=== PATIENT | male | born 1980 | race Caucasian/White ===

== ENCOUNTER 2016-10-11 23:30 | Emergency (ER) | payer SELFPAY ==
[2016-10-11] MEDS ORDERED: ONDANSETRON HCL 4 MG/2 ML VIAL ONE (23:49)
[2016-10-11] MEDS ORDERED: KETOROLAC TROMETHAMINE 30 MG/ML VIAL ONE (23:49)
[2016-10-11] MEDS ORDERED: NORMAL SALINE 1,000 ML IV ONE (23:50)
[2016-10-12 00:21] LABS: URINE MUCUS NONE SEEN (Up to 25%)
[2016-10-12 00:34] LABS: URINE APPEARANCE CLOUDY; URINE COLOR PINK
[2016-10-12 00:35] LABS: URINE GLUCOSE NORMAL (NEGATIVE); URINE KETONE NEGATIVE (NEGATIVE); URINE NITRITE NEGATIVE (NEGATIVE); URINE PROTEIN 30mg/dL (1+) (NEG - TRACE); URINE SPECIFIC GRAVITY < or = 1.005 (0.001-1.035); URINE UROBILINOGEN 0.2mg/dL (Normal) (NEG-1mg/dL)
[2016-10-12 00:36] LABS: URINE BILIRUBIN NEGATIVE (NEGATIVE); URINE BLOOD 250 Ery/uL (3+) (NEGATIVE); URINE RBC 0-5/hpf (0-5/hpf); URINE SQUAMOUS EPITHELIAL CELL 0-5/hpf (<= 15/hpf); URINE WBC 0-4/hpf (0-4/hpf)
[2016-10-12 00:38] LABS: URINE BACTERIA <10 ORGANISMS/hpf (<10/hpf)
[2016-10-12 00:41] LABS: URINE AMORPHOUS SEDIMENT UP TO 25%/lpf (Up to 25%)
[2016-10-12 00:42] LABS: URINE LEUKOCYTE ESTERASE 25 WBC/uL (1+) (NEGATIVE)
--- NOTE | 2016-10-12 01:44 | ER PHYSICIAN DOCUMENTATION ---
Physician Documentation [facility] Name:Jean-Pierre Mcgovern Age:36 yrs Sex:Male :1980 Arrival Date:10/11/2016 Time:23:30 Bed1 Private MD: Kerwin Collado Disposition: 10/12/16 01:30 Discharged to Home/Self Care. Impression: Renal Colic. - Condition is Good. - Discharge Instructions: RENAL STONE w Colic - KIDNEY STONE w/ Colic. - Prescriptions for Chester 7.5- 325 mg Oral Tablet - take 1 tablet by ORAL route every 6 hours As needed; 20 tablet. Flomax 0.4 mg Oral Capsule, Sust. Release 24 hr - take 1 capsule by ORAL route once daily 1/2 hour following the same meal each day; 30 capsule. Zofran 4 mg Oral Tablet - take 1-2 tablet by ORAL route every 4-6 hours As needed; 10 tablet. - Medical Reconciliation form form. - Follow up: Renata Galvan MD; When: 4- 6 days; Reason: Recheck today's complaints, Continuance of care, to establish a local primary care physician.. Follow up: [facility]; When: 1 week; Reason: Recheck today's complaints, Continuance of care. - Problem is new. - Symptoms have improved. HPI: 10/11 23:53 This 36 yrs old Male presents to ER via Wheelchair with complaints of right tl1 flank pain. 23:53 The patient complains of pain in the right mid back. The pain radiates to the right tl1 inguinal area. Onset: The symptom(s)/episode began/occurred suddenly, 0.5 hour(s) ago. Modifying factors: The symptoms are alleviated by nothing. the symptoms are aggravated by nothing. Associated signs and symptoms: Pertinent positives: nausea, Pertinent negatives: diarrhea, dysuria, fever, urinary frequency, hematuria, vomiting. Severity of pain: At its worst the pain was incapacitating just prior to arrival, in the emergency department the pain is unchanged. The patient has experienced similar episodes in the past, multiple times. He says this is about his 12th episode of renal colic. he has passed all but one stone. He is here now with an episode very similar to the multiple prior episodes he has had. He has been out with his partner and friends shelly and has had several alcoholic drinks.. Historical: - Allergies: No known drug Allergies; - PMHx: KIDNEY STONES; - Tetanus: unknown. - Ebola Screening: : Patient negative for fever greater than or equal to 101.5 degrees Fahrenheit, and additional compatible Ebola Virus Disease symptoms. Patient denies exposure to infectious person. Patient denies travel to an Ebola-affected area in the 21 days before illness onset. No symptoms or risks identified at this time. . - Immunization history: Flu Vaccine None. - Social history: Smoking status: Patient uses tobacco products, current every day smoker. ROS: 23:56 Abdomen/GI: Positive for abdominal pain, nausea, Negative for vomiting, diarrhea, tl1 constipation, hematemesis, black/tarry stool, rectal bleeding. 23:56 Back: Positive for pain at rest. 23:56 : Negative for injury or acute deformity, urinary symptoms, urinary frequency, hematuria, burning with urination, difficulty urinating, bladder incontinence, foul smelling urine. 23:56 All other systems are negative. Exam: 23:57 Constitutional: The patient appears alert, awake, well developed, well hydrated, well tl1 groomed, well nourished, anxious, in obvious distress, severely distressed, in obvious pain, smells of alcohol, restless, uncomfortable. 23:57 Head/face: Exam is negative for acute changes. 23:57 Eyes: Exam is negative for acute changes. 23:57 Neck: ROM/movement: is normal, is supple. 23:57 Cardiovascular: Rate: tachycardic, Rhythm: regular, Heart sounds: normal. 23:57 Respiratory: the patient does not display signs of respiratory distress, Respirations: normal, Breath sounds: are normal. 23:57 Abdomen/GI: Inspection: abdomen appears normal, Bowel sounds: diminished, Palpation: soft, moderate abdominal tenderness, in the right lower quadrant. 23:57 : CVA tenderness, on the right. 23:57 Skin: Exam negative for acute changes. 23:57 Neuro: Exam negative for acute changes. Vital Signs: 23:45 BP 110 / 70; Pulse 96; Resp 22; Temp 98(O); Pulse Ox 95% on R/A; Weight 63.5 kg; Height bw2 5 ft. 10 in. (177.80 cm); Pain 12/31; 10/12 01:42 BP 114 / 62; Pulse 80; Resp 18; Pulse Ox 95% on R/A; 2 10/11 23:45 Body Mass Index 20.09 (63.50 kg, 177.80 cm) bw2 MDM: 10/11 23:33 Patient medically screened. tl1 10/12 01:20 Data reviewed: vital signs, nurses notes, lab test result(s), urinalysis, hematuria, tl1 and as a result, I will discharge patient. Counseling: I had a detailed discussion with the patient and/or guardian regarding: the historical points, exam findings, and any diagnostic results supporting the discharge/admit diagnosis, lab results, the need for outpatient follow up, for a recheck, to return to the emergency department if symptoms worsen or persist or if there are any questions or concerns that arise at home. Response to treatment: the patient's symptoms have markedly improved after treatment, and as a result, I will discharge patient. ED course: U/A did not look infected. 10/12 00:42 Order name: UA W/ MICRO -CULTURE IF IND; Complete Time: 18:10 EDMS 10/12 18:09 Interpretation: Abnormal: URINE COLOR PINK; URINE APPEARANCE CLOUDY; URINE LEUKOCYTE tl1 ESTERASE 25 WBC/uL (1+); URINE PROTEIN 30mg/dL (1+); URINE BLOOD 250 Darius/uL (3+). 10/13 08:58 Order name: URINE CULTURE EDMS Dispensed Medications: 10/11 23:45 Drug: Toradol 30 mg; Route: IVP; Site: left antecubital; [facility] 10/12 00:14 Follow up: Response: No adverse reaction [facility] 10/11 23:45 Drug: Zofran 4 mg; Route: IVP; Infused Over: 2 mins; Site: left antecubital; [facility] 10/12 00:15 Follow up: Response: Nausea is decreased [facility] 10/11 23:45 Drug: NS 0.9% 1000 ml; Route: IV; Rate: bolus; Site: left antecubital; [facility] 10/12 01:41 Follow up: IV Status: Completed infusion [facility] 10/11 23:54 CANCELLED (Duplicate Order): Dilaudid 2 mg IVP once [facility] 23:54 CANCELLED (Duplicate Order): Toradol 30 mg IVP once bw2 23:54 CANCELLED (Duplicate Order): Zofran 4 mg IVP once over 2 mins bw2 23:54 Drug: Dilaudid 1 mg; Route: IVP; Site: left antecubital; 2 10/12 00:15 Follow up: Response: Pain is decreased bw2 01:42 Drug: HYDROcodone-acetaminophen (5mg/325 mg) 1-2 tabs 2 tabs; Route: PO; bw2 01:42 Follow up: Response: Pharmacy closed - take home med pack bw2 01:42 Drug: Zofran 1 tablet; Route: PO; bw2 01:42 Follow up: Response: Pharmacy closed - take home med pack bw2 Signatures: Kerwin Rogers MD MD tl1 Caron Quintanilla bw2
--- NOTE | 2016-10-12 01:44 | ER NURSING DOCUMENTATION ---
Nurse's Notes [facility] Name:Jean-Pierre Mcgovern Age:36 yrs Sex:Male :1980 Arrival Date:10/11/2016 Time:23:30 Bed1 Private MD: Diagnosis:Renal Colic Presentation: 10/11 23:39 Presenting complaint: Patient states: he has right sided flank pain. pt states he has bw2 history of kidney stone. pt required full assistance to get into bed. pt is thrashing and kicking in bed. Transition of care: Home. 23:39 Acuity: YULY 3 bw2 23:39 Method Of Arrival: Wheelchair bw2 Triage Assessment: 23:42 General: Appears uncomfortable, Behavior is agitated, anxious, crying, fussy, restless, bw2 Smells of alcohol. Pain: Complains of pain in left flank Pain began 1 hour ago. Historical: - Allergies: No known drug Allergies; - PMHx: KIDNEY STONES; - Tetanus: unknown. - Ebola Screening: : Patient negative for fever greater than or equal to 101.5 degrees Fahrenheit, and additional compatible Ebola Virus Disease symptoms. Patient denies exposure to infectious person. Patient denies travel to an Ebola-affected area in the 21 days before illness onset. No symptoms or risks identified at this time. . - Immunization history: Flu Vaccine None. - Social history: Smoking status: Patient uses tobacco products, current every day smoker. Screenin:51 Infectious Disease Risk None. Abuse screen: Denies threats or abuse. Nutritional bw2 screening: No deficits noted. Assessment: 23:50 See Triage Assessment done by same RN. bw2 Vital Signs: 23:45 BP 110 / 70; Pulse 96; Resp 22; Temp 98(O); Pulse Ox 95% on R/A; Weight 63.5 kg; Height bw2 5 ft. 10 in. (177.80 cm); Pain 10/; 10/12 01:42 BP 114 / 62; Pulse 80; Resp 18; Pulse Ox 95% on R/A; bw2 10/11 23:45 Body Mass Index 20.09 (63.50 kg, 177.80 cm) bw2 ED Course: 10/11 23:31 Patient arrived in ED. ma1 23:33 Kerwin Rogers MD is Attending Physician. tl1 23:39 Caron Quintanilla is Primary Nurse. bw2 23:41 Triage completed. bw2 23:51 Valuables Remains with patient. bw2 23:51 Inserted peripheral IV: 20 gauge in left antecubital area and blood collected. 10/12 01:21 Renata Galvan MD is Referral Physician. tl1 01:28 [facility] is Referral Physician. tl1 Administered Medications: 10/11 23:45 Drug: Toradol 30 mg; Route: IVP; Site: left antecubital; 2 10/12 00:14 Follow up: Response: No adverse reaction 10/11 23:45 Drug: Zofran 4 mg; Route: IVP; Infused Over: 2 mins; Site: left antecubital; 10/12 00:15 Follow up: Response: Nausea is decreased 10/11 23:45 Drug: NS 0.9% 1000 ml; Route: IV; Rate: bolus; Site: left antecubital; 2 10/12 01:41 Follow up: IV Status: Completed infusion 10/11 23:54 CANCELLED (Duplicate Order): Dilaudid 2 mg IVP once bw2 23:54 CANCELLED (Duplicate Order): Toradol 30 mg IVP once bw2 23:54 CANCELLED (Duplicate Order): Zofran 4 mg IVP once over 2 mins bw2 23:54 Drug: Dilaudid 1 mg; Route: IVP; Site: left antecubital; 2 10/12 00:15 Follow up: Response: Pain is decreased bw2 01:42 Drug: HYDROcodone-acetaminophen (5mg/325 mg) 1-2 tabs 2 tabs; Route: PO; bw2 01:42 Follow up: Response: Pharmacy closed - take home med pack bw2 01:42 Drug: Zofran 1 tablet; Route: PO; bw2 01:42 Follow up: Response: Pharmacy closed - take home med pack bw2 Outcome: 01:30 Discharge ordered by . tl1 01:42 Discharged to home ambulatory, with significant other. bw2 01:42 Condition: good 01:42 Discharge Assessment: Patient awake, alert and oriented x 3. No cognitive and/or functional deficits noted. Patient verbalized understanding of disposition instructions. 01:42 Discharge instructions given to patient, significant other, Instructed on follow up and referral plans. medication usage, Demonstrated understanding of instructions, medications, Prescriptions given X 3. 01:43 Patient left the ED. bw2 13:20 Discharge F/U Call: Spoke with: patient. Overall Care on a scale of 1-10 with 10 tg being the best care, you rate our care as: Other comments: Feeling better Signatures: Lenin Lane RN RN tg Kerwin Rogers MD MD 1 Caron Quintanilla 2 Kera Taylor wi1
[2016-10-12] MEDS ORDERED: ONDANSETRON ODT PREPAC 4 MG TAB.RAPDIS PO ONE (01:51)
== END 2016-10-12 01:44 | disposition home or self-care (01) ==
LOC: ER 23:30
DX: N23 Unspecified renal colic (principal); R10.31 Right lower quadrant pain; R11.0 Nausea; Z87.442 Personal history of urinary calculi; R82.99 Other abnormal findings in urine
CPT/HCPCS: 81001; 87086; 96361; 96374; 96375; 99284; J1170; J1885; J2405; J7030